=== PATIENT | female | born 1970 | race Caucasian/White ===

== ENCOUNTER 2022-03-20 00:39 | Emergency (ER) | payer SELFPAY ==
[~2022-03-20] VITALS: Ht 162.6 cm; Wt 104.5 kg
[2022-03-20 01:41] LABS: INFLUENZA A PATIENT NEGATIVE (NEGATIVE); INFLUENZA B PATIENT NEGATIVE (NEGATIVE)
[2022-03-20 01:56] VITALS: BP 147/64
--- NOTE | 2022-03-20 02:20 | RAD ---
Study: XR CHEST 1V Indication: Shortness of breath. Comparison: None. Findings: The cardiomediastinal silhouette and vamsi are within normal limits. No localized airspace opacity, pl eural effusion or pneumothorax. Impression: No acute radiographic abnormality of the chest. Electronically signed by: NATHANIEL BERNARDO MD (03/20/2022 2:18 AM) [facility]
[2022-03-20 02:34] LABS: BASO # 0.1 x10^3/uL (0.0-0.2); BASO % 1 % (0-3); EOS # 0.3 x10^3/uL (0.0-0.7); EOS % 4 % (0-3); HEMATOCRIT 36.3 % (36.0-47.0); HEMOGLOBIN 12.1 g/dL (12.0-15.5); LYMPH # 1.2 x10^3/uL (1.0-4.8); LYMPH % 18 % (24-48); MEAN CORPUSCULAR HEMOGLOBIN 26 pg (25-35); MEAN CORPUSCULAR HGB CONC 33 g/dL (31-37); MEAN CORPUSCULAR VOLUME 77 fL (79-100); MONO # 0.6 x10^3/uL (0.0-1.1); MONO % 9 % (0-9); NEUT # 4.6 x10^3/uL (1.8-7.7); NEUT % 69 % (31-73); PLATELET COUNT 299 x10^3/uL (140-400); RED BLOOD COUNT 4.71 x10^6/uL (3.50-5.40); RED CELL DISTRIBUTION WIDTH 15.8 % (11.5-14.5); WHITE BLOOD COUNT 6.7 x10^3/uL (4.0-11.0)
--- NOTE | 2022-03-20 02:36 | PHYS DOC ---
Past Medical History Past Surgical History: No Surgical History General Adult EDM: Chief Complaint: FLU SYMPTOM HPI: HPI: Patient is a 52 year old female presents with sinus and chest congestion over the last week. Patient states that has been ongoing she just does not feel better. Patient states that she has been diagnosed with asthma in the past but does not believe that she has asthma. States that she is not vaccinated for COVID as she was given monoclonal antibodies in the past and states that she had a cardiac arrest after being given that. Patient denies any fevers or chills. Review of Systems: Review of Systems: Constitutional: Denies fever or chills. [] Eyes: Denies change in visual acuity. [] HENT: Denies nasal congestion or sore throat. [] Respiratory: Chest and sinus congestion shortness of breath Cardiovascular: Denies chest pain or edema. [] GI: Denies abdominal pain, nausea, vomiting, bloody stools or diarrhea. [] : Denies dysuria. [] Musculoskeletal: Denies back pain or joint pain. [] Integument: Denies rash. [] Neurologic: Denies headache, focal weakness or sensory changes. [] Endocrine: Denies polyuria or polydipsia. [] Lymphatic: Denies swollen glands. [] Psychiatric: Denies depression or anxiety. [] Heart Score: C/O Chest Pain: No Risk Factors: Risk Factors: DM, Current or recent (<one month) smoker, HTN, HLP, family history of CAD, obesity. Risk Scores: Score 0 - 3: 2.5% MACE over next 6 weeks - Discharge Home Score 4 - 6: 20.3% MACE over next 6 weeks - Admit for Clinical Observation Score 7 - 10: 72.7% MACE over next 6 weeks - Early Invasive Strategies Current Medications: Current Medications Medications (Trade) Dose Ordered Sig/Grace Start Time Stop Time Status Last Admin Dose Admin Albuterol Sulfate (Ventolin Neb Soln) 2.5 mg 1X ONCE 03/20/22 03:00 03/20/22 03:01 03/20/22 02:34 2.5 MG Allergies: Allergies: Allergies Coded Allergies Type Severity Reaction Last Updated Verified nitrofurantoin Allergy Intermediate Hives 03/20/22 Yes Physical Exam: PE: Constitutional: Well developed, well nourished, no acute distress, non-toxic appearance. [] HENT: Sinus congestion normocephalic, atraumatic, bilateral external ears normal, oropharynx moist, no oral exudates, nose normal. [] Eyes: PERRLA, EOMI, conjunctiva normal, no discharge. [] Neck: Normal range of motion, no tenderness, supple, no stridor. [] Cardiovascular:Heart rate regular rhythm, no murmur [] Lungs & Thorax: Bilateral wheezing, Abdomen: Bowel sounds normal, soft, no tenderness, no masses, no pulsatile masses. [] Skin: Warm, dry, no erythema, no rash. [] Back: No tenderness, no CVA tenderness. [] Extremities: No tenderness, no cyanosis, no clubbing, ROM intact, no edema. [] Neurologic: Alert and oriented X 3, normal motor function, normal sensory function, no focal deficits noted. [] Psychologic: Affect normal, judgement normal, mood normal. [] Current Patient Data: Labs: Laboratory Tests Test 03/20/22 01:20 03/20/22 02:22 Influenza Type A Antigen Negative (NEGATIVE) Influenza Type B Antigen Negative (NEGATIVE) SARS-CoV-2 Antigen (Rapid) Negative (NEGATIVE) White Blood Count 6.7 x10^3/uL (4.0-11.0) Red Blood Count 4.71 x10^6/uL (3.50-5.40) Hemoglobin 12.1 g/dL (12.0-15.5) Hematocrit 36.3 % (36.0-47.0) Mean Corpuscular Volume 77 fL (79-100) L Mean Corpuscular Hemoglobin 26 pg (25-35) Mean Corpuscular Hemoglobin Concent 33 g/dL (31-37) Red Cell Distribution Width 15.8 % (11.5-14.5) H Platelet Count 299 x10^3/uL (140-400) Neutrophils (%) (Auto) 69 % (31-73) Lymphocytes (%) (Auto) 18 % (24-48) L Monocytes (%) (Auto) 9 % (0-9) Eosinophils (%) (Auto) 4 % (0-3) H Basophils (%) (Auto) 1 % (0-3) Neutrophils # (Auto) 4.6 x10^3/uL (1.8-7.7) Lymphocytes # (Auto) 1.2 x10^3/uL (1.0-4.8) Monocytes # (Auto) 0.6 x10^3/uL (0.0-1.1) Eosinophils # (Auto) 0.3 x10^3/uL (0.0-0.7) Basophils # (Auto) 0.1 x10^3/uL (0.0-0.2) Laboratory Tests 03/20/22 02:22 Vital Signs: Vital Signs Date Time Temp Pulse Resp B/P (MAP) Pulse Ox O2 Delivery O2 Flow Rate FiO2 03/20/22 02:33 97 Room Air 03/20/22 01:04 98.1 84 20 147/64 (91) 98.1 EKG: EKG: [] Sinus rhythm with a heart rate of 75 with a QTC of 476. VA interval 164 no ischemic changes Radiology/Procedures: Radiology/Procedures: []Study: XR CHEST 1V Indication: Shortness of breath. Comparison: None. Findings: The cardiomediastinal silhouette and vamsi are within normal limits. No localized airspace opacity, pleural effusion or pneumothorax. Impression: No acute radiographic abnormality of the chest. Course & Med Decision Making: Course & Med Decision Making Pertinent Labs and Imaging studies reviewed. (See chart for details) [] Patient was reevaluated states that she feels better. Return precautions were discussed. Vital signs were reviewed patient appears hemodynamically stable agreeable to plan. Dragon Disclaimer: Dragon Disclaimer: This electronic medical record was generated, in whole or in part, using a voice recognition dictation system. Departure Departure Impression: Primary Impression: Viral URI Disposition: HOME / SELF CARE / HOMELESS Condition: STABLE Referrals: NO PCP (PCP) Scripts Albuterol Sulfate (PROAIR HFA INHALER) 8.5 Gm Hfa.aer.ad 2 PUFF IH PRN Q4-6HRS PRN for wheezing for 21 Days, #1 INHALER 0 Refills Prov: BASSAM HAUSER DO 03/20/22 BASSAM HAUSER DO Mar 20, 2022 02:36
[2022-03-20 02:43] LABS: CREATININE 1.2 mg/dL (0.6-1.0); GFR 46.8; POTASSIUM 3.9 mmol/L (3.5-5.1)
[2022-03-20 02:49] LABS: ALBUMIN 3.3 g/dL (3.4-5.0); ALBUMIN/GLOBULIN RATIO 0.8 (1.0-1.7); TOTAL BILIRUBIN 0.2 mg/dL (0.2-1.0); TOTAL PROTEIN 7.7 g/dL (6.4-8.2)
[2022-03-20] MEDS ORDERED: ALBUTEROL SULFATE 2.5 MG/3 ML NEBU. NEB ONE ×2 (03:00→03:30)
[2022-03-20] MEDS ORDERED: DEXAMETHASONE SOD PHOS 20 MG/5 ML VIAL. IV ONE (03:30)
[2022-03-20] MEDS ORDERED: ALBU2.5V8 IH (05:37)
[2022-03-20] MEDS ORDERED: FLUT9.9S NS (05:38)
--- NOTE | 2022-03-20 07:32 | EKG ---
[facility] [address] [place] [address] Test Date: 2022-03-20 Test Time: 02:12:13 Pat Name: FREDA RAMÍREZ Department: Room: Gender: F Ammonia Box Tender: : 1970 Requested By: BASSAM HAUSER Order Number: [id number] Reading MD: Angel Fiore Measurements Intervals [place] Rate: 75 P: 43 IN: 164 QRS: 17 QRSD: 70 T: 26 QT: 424 QTc: 476 Interpretive Statements SINUS RHYTHM PROLONGED QT Electronically Signed On 03-20-2022 16:16:12 CDT by Angel Fiore
== END 2022-03-20 06:12 | disposition home or self-care (01) ==
LOC: ER 00:39
DX: J06.9 Acute upper respiratory infection, unspecified (principal); B97.89 Other viral agents as the cause of diseases classified elsewhere; Z20.822 Contact with and (suspected) exposure to COVID-19; Z88.8 Allergy status to other drugs, medicaments and biological substances
CPT/HCPCS: 36415; 71045; 80053; 83880; 84484; 85025; 87428; 93005; 94640; 96374; 99285; J1100; J7613